=== PATIENT | male | born 1990 | race Caucasian/White ===

== ENCOUNTER 2016-11-25 22:31 | Emergency (ER) | payer MEDICAID ==
[~2016-11-25] VITALS: Ht 167.6 cm; Wt 109.1 kg
[2016-11-25 22:34] VITALS: BP 143/83; PULSE 95; RESP 20; O2SAT 95
--- NOTE | 2016-11-25 23:37 | ED.REPORT ---
HPI-Psychiatric Illness Date of Service Nov 25, 2016 ED Provider: Ronaldo Woods MD A 26 year old male with a history of chronic pain, PTSD, and traumatic head injury presents to the ED with photophobia worsening over the past few days. Associated symptoms include memory loss, confusion, and generalized pain. The patient reports that many of his symptoms are chronic but worsening since his head injury in 2011 and he is concerned that he has not adequately sought treatment. He states that [facility], but after further questioning it seems he has not followed-up medically or administratively with the [facility] during the process of disability determination. He is not sure when he last saw a physician and does not believe he has received a CT scan since onset of his symptoms. The patient reports he was "just passing through the area," headed to [place] from [place] when he ran out of money. Nursing Notes Stated Complaint: MEMORY BAD Chief Complaint: Psychiatric Complaint Nursing Notes Reviewed: Yes Allergies: Coded Allergies: No Known Allergies (Unverified , 11/25/16) General Time Seen by MD: 23:35 Chief Complaint Other (Photophobia) Hx Obtained From: Patient Arrived By: Walk-in Onset Occurred: More than a week ago... ("Worsening over past couple of days") Symptom Duration: Since onset Progression Since Onset: Gradually worsening Location: : Abdomen: Chest: Head Quality: Painful Severity: Current: Moderate Severity: Maximum: Moderate Pertinent Negative: Relieved by nothing Immunizations: Unknown Recent Healthcare: No recent doctor visit Similar Sx Previous: Yes Risk-Psychiatric Illness Suicide Risk Stratification RF Statements: Risk factors reviewed Past Medical History Past Medical History Chronic pain PTSD TBI in 2011 during service - since discharged from service and is in the process of disability determination but has not followed-up medically or administratively with the [facility] as of 11/26/16 Past Surgical History None reported Smoking History Current Some Day Smoker Social History Alcohol Use: Denies alcohol use Drug Use: THC Other Social History: From out of town Ambulatory Status Independent Review of Systems Review of Systems Note: + Memory loss, generalized pain Constitutional: Denies: Fever Respiratory: Denies: Non-productive cough, Shortness of breath GI: Denies: Diarrhea, Vomiting Psychiatric: Reports: Confusion Complete sys rev & neg: except as marked. Eyes: Reports: Photophobia Physical Exam Initial Vital Signs Vital Signs (First) Date Time Temp Pulse Resp B/P Pulse Ox O2 Delivery O2 Flow Rate FiO2 11/25/16 22:34 36.7 95 20 143/83 95 Room Air Initial VS: Reviewed, Vital signs normal Head / Eyes: Atraumatic, Normocephalic ENT: Conjunctiva normal, No scleral icterus Respiratory: Breath sounds normal, Clear to auscultation, No respiratory distress Cardiovascular: Regular rate & rhythm, Heart sounds normal Abdomen / GI: Soft, Non-tender Skin: Warm, Dry, No cyanosis General/Constitutional: Awake, Alert Patient is somewhat evasive in answering questions - repeatedly stating that he "can't remember" and citing his memory problems, although nothing can be found that he does not remember without some time Neurologic: Oriented X3, Speech NL, No motor deficits, No sensory deficits Interpretation & Diagnostics Urine Drug Screen: + Marijuana + Opiates Otherwise Negative Lab Results Interpretation Result Diagram: 11/26/165 11/26/16 0035 Test 11/26/16 00:35 11/26/16 00:40 White Blood Count 10.4th/mm3 (3.8-10.1) Red Blood Count 5.37mil/mm3 (4.40-5.80) Hemoglobin 15.5g/dL (13.8-17.2) Hematocrit 44.4% (41.0-50.0) Mean Corpuscular Volume 82.7fL (81-100) Mean Corpuscular Hemoglobin 28.9pg (27.0-35.0) Mean Corpuscular Hemoglobin Concent 34.9% (32.0-37.0) Red Cell Distribution Width 12.7% (12.3-15.4) Platelet Count 233bil/L (150-400) Neutrophils (%) (Auto) 62.3% (40-74) Lymphocytes (%) (Auto) 25.8% (14-46) Monocytes (%) (Auto) 8.4% (4-12) Eosinophils (%) (Auto) 2.7% (0-5) Basophils (%) (Auto) 0.4% (0-3) Sodium Level 139mEq/L (134-144) Potassium Level 4.6mEq/L (3.5-5.2) Chloride Level 102mEq/L (97-108) Carbon Dioxide Level 24mmol/L (18-29) Blood Urea Nitrogen 10mg/dL (6-20) Creatinine 0.83mg/dL (0.76-1.27) Estimat Glomerular Filtration Rate 120mL/min (>59) Glucose Level 102mg/dL (60-99) Calcium Level 9.4mg/dL (8.5-10.1) Magnesium Level 1.9mg/dL (1.6-2.6) Total Bilirubin 0.4mg/dL (0.0-1.2) Aspartate Amino Transf (AST/SGOT) 25U/L (0-50) Alanine Aminotransferase (ALT/SGPT) 40U/L (0-44) Alkaline Phosphatase 62U/L (25-150) Total Protein 7.3g/dL (6.4-8.4) Albumin 4.5g/dL (3.4-5.0) Hold Flores Top Tube Received (Received) Hold Urine Received (Received) Lab values outside NL range: no clinical significance. Lab Results Interpretation: Unexplained opiate positive drug screen. CT Head Interpretation CONCLUSION: No acute intracranial abnormality is identified. Transmitted to ED at 11/26/16 - 12:38:35 AM PDT Study: Head CT no contrast Interpretation / Wet Read by: Interpret - Radiologist (Gian Song M.D.) Re-Eval/Medical Decision Med Decision/Clinical Course 26-year-old male who came into town on the [facility]. The history I get is from him only and I have no way to corroborate it. He apparently came by bus from [place] ostensibly on his way to [place] where he reportedly had a job. He then got a phone call today that the job offer had fallen through. So he got off the bus here in [place] with no place to go, no money and no way to get back to [place]. He states that he had a traumatic brain injury in 2012 in in the [employer]. He has a disability determination pending. He states that the [facility] has let down, but on closer questioning it appears that he is never followed up about this. He states that his symptoms have worsened with increasing photophobia, a feeling of disorientation and confusion, and memory loss. CT scan was negative. Screening labs were negative. His urine drug screen showed marijuana and opiates. He categorically did not place any opiate use. He frequently opts out of answering questions by stating that he cannot remember. I informed him that there is no more we can do to evaluate or treat his TBI tonight. I encouraged him to follow up with the [facility] and find out what he is eligible for. I also encouraged him to take advantage of the treatment programs for TBI. Re-Evaluation/Progress : Time of Eval: 01:51 Patient Status: Condition improved Re-Evaluation/Progress Note: Patient rechecked. He has nowhere to go for the night. Discussed with patient CT and lab results, diagnosis, and plan for discharge in the morning. Follow-up and return to the ER instructions given. Patient agrees with plan for care and all questions were addressed. Counseled Regarding: Diagnosis, Lab results, Need for follow-up, When/why to return to ED Discharge & Departure Impression: Primary Impression: TBI (traumatic brain injury) Encounter type: sequela Loss of consciousness presence/duration: without LOC Qualified Code: S06.9X0S - Unspecified intracranial injury without loss of consciousness, sequela Additional Impression: Homelessness )( Condition at Discharge: No danger to self, No danger to others, No suicidal ideation, No homicidal ideation Disposition: Home Discharge Condition All VS Reviewed: Yes Condition: Improved Additional Instructions: Thank you for entrusting us with your care. Your head CT and lab results were reassuring for any serious illness. You should [facility] care at the [facility] for follow-up and long-term treatment. Return to the ER with any new or worsening symptoms. Referrals: [facility] Attestation Portions of this note were transcribed by Christine Dougherty. I, Dr. Woods, personally performed the history, physical exam, and medical decision-making; I reviewed and confirmed the accuracy of the information in the transcribed note. Signed by: Delio Godwin, 11/26/2016, 05:35 copies to: [facility] Ronaldo Woods MD Nov 25, 2016 23:37 CHRISTINE DOUGHERTY Nov 25, 2016 23:48
[2016-11-26 00:45] LABS: BASOPHILS % (AUTO) 0.4 % (0-3); EOSINOPHILS % (AUTO) 2.7 % (0-5); MONOCYTES % (AUTO) 8.4 % (4-12); Mean Corpuscular Hemoglobin 28.9 pg (27.0-35.0); Mean Corpuscular Volume 82.7 fL (81-100); NEUTROPHILS % (AUTO) 62.3 % (40-74); Platelet Count 233 bil/L (150-400)
[2016-11-26 01:09] LABS: Magnesium 1.9 mg/dL (1.6-2.6)
[2016-11-26 01:17] VITALS: BP 134/75; PULSE 72; RESP 16; O2SAT 100
[2016-11-26 06:23] VITALS: BP 125/72; PULSE 80; RESP 16; O2SAT 100
--- NOTE | 2016-11-26 07:20 | DRSVH ---
PROCEDURE: CT BRAIN WITHOUT CONTRAST ([id number]) INDICATIONS: TBI 2012. recent confusion and memory loss TECHNIQUE: Noncontrast 4.5 mm thick angled axial sections acquired from the foramen magnum to the vertex, with c oronal reformats. COMPARISON: None. FINDINGS: Image quality: Excellent. CSF spaces: Basal cisterns are patent. No extra-axial fluid collections. Ventricles are normal in size and shape. Brain: No midline shift. No intracranial masses or hemorrhage. Mercado-white matter interface is norm al. Skull and face: Calvarium and visualized facial bones are intact, without suspicious lesions. Sinuses: Visualized sinuses and mastoids are clear. IMPRESSION: 1. No acute intracranial abnormalities. No significant discrepancy with the dray driver radiology preliminary report. Dictated by: Donnie Kelley M.D. on 11/26/2016 at 7:17 Approved by: Donnie Kelley M.D. on 11/26/2016 at 7:18
== END 2016-11-26 06:25 | disposition home or self-care (01) ==
LOC: SED 22:31
DX: S06.9X0S Unspecified intracranial injury without loss of consciousness, sequela (principal); H53.149 Visual discomfort, unspecified; X58.XXXS Exposure to other specified factors, sequela; Y93.9 Activity, unspecified; Y92.9 Unspecified place or not applicable; Y99.9 Unspecified external cause status; F17.200 Nicotine dependence, unspecified, uncomplicated; Z59.0 Homelessness